=== PATIENT | male | born 1960 | race Caucasian/White ===

== ENCOUNTER 2017-05-01 12:57 | Emergency (ER) | payer OTHER ==
[~2017-05-01] VITALS: Ht 170.2 cm; Wt 75.0 kg
[2017-05-01 13:06] VITALS: BP 111/73; PULSE 100; RESP 18; O2SAT 98
--- NOTE | 2017-05-01 13:34 | ED.REPORT ---
HPI-Medical Clearance Date of Service May 01, 2017 ED Provider: History of Present Illness: takes zyprexa and reflex medication going to treatment. doing meth and alcohol. denies primary care Etoh 0.00 at 1340. animated, rapid speech. Came from [facility]. 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 05/01/2017 Ambulatory Status Independent Review of Systems Basic Review of Systems Eyes: Vision NL, No discharge Hematologic: No bleeding, No bruising Skin: No bruising, No rash, No itch Physical Exam Initial Vital Signs Vital Signs (First) Date Time Temp Pulse Resp B/P Pulse Ox O2 Delivery O2 Flow Rate FiO2 05/01/17 13:06 36.7 100 18 111/73 98 Room Air Initial VS: Reviewed, Vital signs normal Head / Eyes: Atraumatic, Normocephalic, PERRL ENT: Mucous membranes moist, Conjunctiva normal, No scleral icterus Neck: Supple, Non-tender, Full range of motion Respiratory: Breath sounds normal, Clear to auscultation, No respiratory distress Cardiovascular: Regular rate & rhythm, Heart sounds normal, Intact distal pulses Abdomen / GI: Soft, Non-tender, No guarding, No rebound, No distention Back: No CVA tenderness Lymphatic: No lymphadenopathy Extremities: Vascular intact, Neuro intact, No swelling, No tenderness Skin: Warm, Dry, No cyanosis Neurologic: Alert, Oriented, Nonfocal Psychiatric: Mood/affect normal, Behavior normal, Normal thought content General/Constitutional: Awake, Alert, No acute distress Respiratory / Chest: Atraumatic, Breath sounds NL, Breath sounds = bilat, No respiratory distress Cardiovascular: Heart rate NL, Regular rhythm, Heart sounds NL Abdomen: Atraumatic, Soft, Non-tender Neurologic: Oriented X3 patient animated, appears under the influence. Urine positve for meth and amphetamines Interpretation & Diagnostics Lab Results Interpretation Result Diagram: 05/01/17 1350 05/01/17 1350 Test 05/01/17 13:50 05/01/17 15:07 05/01/17 15:50 White Blood Count 9.6th/mm3 (3.8-10.1) Red Blood Count 4.86mil/mm3 (4.40-5.80) Hemoglobin 15.0g/dL (13.8-17.2) Hematocrit 41.6% (41.0-50.0) Mean Corpuscular Volume 85.6fL (81-100) Mean Corpuscular Hemoglobin 30.9pg (27.0-35.0) Mean Corpuscular Hemoglobin Concent 36.1% (32.0-37.0) Red Cell Distribution Width 13.4% (12.3-15.4) Platelet Count 328bil/L (150-400) Neutrophils (%) (Auto) 63.7% (40-74) Lymphocytes (%) (Auto) 23.9% (14-46) Monocytes (%) (Auto) 10.9% (4-12) Eosinophils (%) (Auto) 0.9% (0-5) Basophils (%) (Auto) 0.4% (0-3) Sodium Level 141mEq/L (134-144) Potassium Level 3.8mEq/L (3.5-5.2) Chloride Level 101mEq/L (97-108) Carbon Dioxide Level 23mmol/L (18-29) Blood Urea Nitrogen 18mg/dL (6-24) Creatinine 0.96mg/dL (0.76-1.27) Estimat Glomerular Filtration Rate 86mL/min (>59) Glucose Level 103mg/dL (60-99) Calcium Level 9.6mg/dL (8.5-10.1) Total Bilirubin 0.5mg/dL (0.0-1.2) Aspartate Amino Transf (AST/SGOT) 31U/L (0-50) Alanine Aminotransferase (ALT/SGPT) 23U/L (0-44) Alkaline Phosphatase 72U/L (25-150) Total Protein 7.3g/dL (6.4-8.4) Albumin 4.4g/dL (3.4-5.0) Thyroid Stimulating Hormone (TSH) 0.677uIU/mL (0.450-4.500) Urine Color Dark yellow (YELLOW) Urine Appearance Clear (CLEAR,HAZY) Urine pH 5.5 (5.0-8.0) Urine Specific [place] 1.030 (1.003-1.035) Urine Protein Tracemg/dL (NEG,TRACE) Urine Glucose (UA) Negativemg/dL (NEGATIVE) Urine Ketones Tracemg/dL (NEGATIVE) Urine Occult Blood Negative (NEGATIVE) Urine Nitrite Negative (NEGATIVE) Urine Bilirubin Negative (NEGATIVE) Urine Urobilinogen 8.0mg/dL (NORMAL) Urine Leukocyte Esterase Negative (NEGATIVE) Urine RBC 0-2/hpf (0-2) Urine WBC 0-5/hpf (0-5) Urine Epithelial Cells Occasional/hpf (NONE-MOD) Urine Crystals Amorphous urates (NONE Urine Bacteria Few/hpf (NONE-FEW) Urine Hyaline Casts None/lpf (NONE) Urine Granular Casts None seen (NONE SEEN) Urine Waxy Casts None seen (NONE SEEN) Urine Red Blood Cell Casts None seen (NONE SEEN) Urine White Blood Cell Casts None seen (NONE SEEN) Urine Mucus Present (None Seen) Urine Trichomonas None seen (NONE SEEN) Urine Yeast None (NONE SEEN) Urinalysis Comment None Urine Culture Reflexed Not indicated Hold Purple Top Tube Received (Received) Hold Blue Top Tube Received (Received) Hold Red Top Tube Received (Received) Hold [place] Top Tube Received (Received) Hold Ritter Top Tube Received (Received) Lab Results Interpretation: urine positive for meth and amphetamines and ecatasy Re-Eval/Medical Decision Med Decision/Clinical Course 56 year old male with meth use presents from [facility] for stablization. to [facility] indicates he did not complete the intake process. They will consider him for admission tomorrow but he needs to clear and complete the intake process. [facility] will address tomorrow. Patient had a dose of zyprexa, had lunch and is sleeping. Dinner is ordered. Patient continues with sleeping, is arousable Care of patient turned over to Dr. Landa [id number] Discharge & Departure Impression: Primary Impression: Substance abuse EDSupervising Provider for APC: Randell Landa MD copies to: OTHER,PHYSICIAN Isabella Martinez May 01, 2017 13:34
[2017-05-01 14:19] LABS: BASOPHILS % (AUTO) 0.4 % (0-3); EOSINOPHILS % (AUTO) 0.9 % (0-5); MONOCYTES % (AUTO) 10.9 % (4-12); Mean Corpuscular Hemoglobin 30.9 pg (27.0-35.0); Mean Corpuscular Volume 85.6 fL (81-100); NEUTROPHILS % (AUTO) 63.7 % (40-74); Platelet Count 328 bil/L (150-400)
[2017-05-01 15:31] LABS: APPEARANCE,URINE CLEAR (CLEAR,HAZY); COLOR,URINE DARK YELLOW (YELLOW); OCCULT BLOOD,URINE NEGATIVE (NEGATIVE); PH,URINE 5.5 (5.0-8.0)
[2017-05-01 18:05] VITALS: BP 117/75; PULSE 79; RESP 16; O2SAT 97
[2017-05-01 21:07] VITALS: BP 115/78; PULSE 85; RESP 20; O2SAT 95
[2017-05-02 01:28] VITALS: BP 101/67; PULSE 73; RESP 18; O2SAT 100
[2017-05-02 04:36] VITALS: BP 94/39; PULSE 63; RESP 16; O2SAT 100
[2017-05-02] MEDS ORDERED: LORazepam 2 mg Tablet PO ONE (06:30)
[2017-05-02] MEDS ORDERED: OLANZapine Zydis ODT 5 mg Tablet PO ONE (06:30)
[2017-05-02 21:34] VITALS: BP 116/78; PULSE 75; RESP 16; O2SAT 96
== END 2017-05-02 23:41 | disposition home or self-care (01) ==
LOC: SED 12:57
DX: F19.10 Other psychoactive substance abuse, uncomplicated (principal); F17.200 Nicotine dependence, unspecified, uncomplicated; Z59.0 Homelessness
CPT/HCPCS: 36415; 80053; 81000; 82075; 84443; 85025; 96372; 99284; S0166